=== PATIENT | male | born 1980 | race Caucasian/White ===

== ENCOUNTER 2017-05-19 21:01 | Emergency (ER) | payer MEDICAID, SELFPAY ==
[2017-05-19] MEDS ORDERED: Ondansetron HCl/PF 4 MG/2 ML Vial ONE (21:34)
[2017-05-19] MEDS ORDERED: Dexamethasone 4 MG TAB ONE (21:38)
[2017-05-19 21:43] LABS: Hematocrit 41.5 % (42.0-52.0); Mean Platelet Volume 7.1 fL (7.4-10.4); Red Blood Cell (RBC) Count 4.34 mill/uL (4.70-6.10); White Blood Cell (WBC) Count 13.4 thou/uL (4.8-10.8)
[2017-05-19] MEDS ORDERED: Ketorolac Tromethamine 30 MG/ML VIAL ONE (21:58)
[2017-05-19 22:04] LABS: Band 5 % (5-11); Neutrophil 46 % (42-75); Reactive Lymphocytes 15 % (0-10)
== END 2017-05-19 22:22 | disposition home or self-care (01) ==
LOC: ERS 21:01
DX: B27.90 Infectious mononucleosis, unspecified without complication (principal); F32.9 Major depressive disorder, single episode, unspecified; F41.9 Anxiety disorder, unspecified; F17.210 Nicotine dependence, cigarettes, uncomplicated; F17.220 Nicotine dependence, chewing tobacco, uncomplicated
CPT/HCPCS: 85025; 86308; 87081; 87430; 96374; 96375; J1885; J2405; J8540

== ENCOUNTER 2017-05-21 18:43 | Emergency (ER) | payer SELFPAY ==
[~2017-05-21 18:43] MED LIST: ISOVUE-370 76%-LOCM 1 ML ONE
[2017-05-21] MEDS ORDERED: Dexamethasone 4 mg/ml Vial ONE (19:44)
[2017-05-21] MEDS ORDERED: Ondansetron HCl/PF 4 MG/2 ML Vial ONE (19:44)
[2017-05-21 20:13] LABS: Mean Platelet Volume 7.1 fL (7.4-10.4); Red Blood Cell (RBC) Count 4.34 mill/uL (4.70-6.10); White Blood Cell (WBC) Count 12.7 thou/uL (4.8-10.8)
[2017-05-21 20:30] LABS: Anion Gap 18 mmol/L (10-20); BUN (Urea Nitrogen) 23 mg/dL (8.9-20.6); Calc. Creatinine Clearance 0 mL/min (70-130); Calcium 8.9 mg/dL (7.8-10.44); Carbon Dioxide 25 mmol/L (22-29); Chloride 98 mmol/L (98-107); Estimated GFR-MDRD Greater than 90
[2017-05-21 20:39] LABS: Band 3 % (5-11); Neutrophil 58 % (42-75); Reactive Lymphocytes 3 % (0-10)
[2017-05-21] MEDS ORDERED: Ketorolac Tromethamine 30 MG/ML VIAL ONE (21:48)
--- NOTE | 2017-05-21 22:12 | CT ---
CT ABDOMEN AND PELVIS WITH IV CONTRAST: History: Abdominal pain, recent fall, mononucleosis. FINDINGS: The lungs bases are clear. Small cysts are present throughout the liver. Retroaortic left renal vein is noted. The spleen has a normal appearance and is upper limits of normal in size at 12 cm. No free fluid or free air are visible. Lack of oral contrast limits evaluation of the bowel. There is no evidence of obstruction. Urinary bladder is incompletely distended. IMPRESSION: 1. No significant abnormalities are demonstrated. POS: [facility]
== END 2017-05-21 22:19 | disposition home or self-care (01) ==
LOC: ERS 18:43
DX: B27.90 Infectious mononucleosis, unspecified without complication (principal); F32.9 Major depressive disorder, single episode, unspecified; F41.9 Anxiety disorder, unspecified; F17.210 Nicotine dependence, cigarettes, uncomplicated; F17.220 Nicotine dependence, chewing tobacco, uncomplicated
CPT/HCPCS: 36415; 74177; 80048; 85025; 96361; 96374; 96375; J1100; J1885; J2405

== ENCOUNTER 2018-11-27 18:14 | Emergency (ER) | payer SELFPAY ==
[2018-11-27 19:21] LABS: #Basophils 0.1 thou/uL (0.0-0.2); #Eosinphils 0.1 thou/uL (0.0-0.7); #Lymphocytes 2.4 thou/uL (1.20-3.40); #Monocytes 0.5 thou/uL (0.11-0.59); #Neutrophils 3.4 thou/uL (1.40-6.50); %Basophils 1.3 % (0.0-1.0); %Eosinophils 1.5 % (0.0-10.0); %Lymphocytes 37.1 % (21.0-51.0); %Monocytes 7.4 % (0.0-10.0); %Neutrophils 52.7 % (42.0-75.0); Mean Corpuscular Hemoglobin 31.7 pg (27.0-31.0); Mean Corpuscular Volume 93.2 fL (78.0-98.0); Mean Platelet Volume 5.7 fL (7.4-10.4); Platelet Count 499 thou/uL (130-400); RBC Distribution Width 11.8 % (11.5-14.5); White Blood Cell (WBC) Count 6.4 thou/uL (4.8-10.8)
[2018-11-27 19:49] LABS: ALT (SGPT) 11 U/L (8-55); AST (SGOT) 16 U/L (5-34); Albumin 4.8 g/dL (3.5-5.0); Alkaline Phosphatase 46 U/L (40-150); Anion Gap 12 mmol/L (10-20); BUN (Urea Nitrogen) 11 mg/dL (8.9-20.6); Calc. Creatinine Clearance 0 mL/min (70-130); Calcium 9.8 mg/dL (7.8-10.44); Carbon Dioxide 29 mmol/L (22-29); Chloride 102 mmol/L (98-107); Estimated GFR-MDRD 88; Globulin 2.2 g/dL (2.4-3.5); Glucose 78 mg/dL (70-105); Potassium 3.2 mmol/L (3.5-5.1); Sodium 140 mmol/L (136-145)
[2018-11-27 20:00] LABS: Lipase 8 U/L (8-78)
[2018-11-27] MEDS ORDERED: Morphine 4 MG/ML VIAL ONE (22:27)
[2018-11-27] MEDS ORDERED: Ondansetron PF 4 MG/2 ML Vial ONE (22:28)
--- NOTE | 2018-11-27 23:13 | CT ---
Contrast-enhanced CT images abdomen pelvis. [place] history: Abdominal pain. Contrast-enhanced CT images of the abdomen pelvis obtained after administration of IV contrast. Unfor tunately oral contrast was not given. This does decrease sensitivity for detection of pathology. The lung bases are unremarkable. Numerous hepatic cyst seen. The spleen is unremarkable. The gallbladder and pancreas are unremarkable. Adrenal glands and kidneys unremarkable. Numerous sigmoid colonic diverticuli are present. No evidence of free intraperitoneal air or abscess seen. No dilated loops of small bowel seen. Some moderately thickened and inflamed loop of small bowel seen. This may represent areas of enteriti s in the left mid abdomen. IMPRESSION: Thickened and inflamed loops of small bowel concerning for enteritis.
[2018-11-27] MEDS ORDERED: traMADol HCl 50 MG TAB ONE (23:43)
[2018-11-28 00:05] LABS: Clarity Clear (Clear)
[2018-11-28 00:06] LABS: Bilirubin Small (Negative); Blood, Urine Negative (Negative); Glucose, Urine (Dipstick) Negative (Negative); Leukocyte Negative (Negative); Nitrite Negative (Negative); Protein, Urine (Dipstick) 30 mg/dL (Neg-Trace)
[2018-11-28 00:09] LABS: Bacteria/HPF None Seen HPF (None Seen); Hyaline Casts/LPF 0-3 HYALINE CAST LPF (0-3 Hyaline); RBC/HPF 0-3 HPF (0-3); Squamous Epithelial None Seen HPF (0-3); WBC/HPF 0-3 HPF (0-3)
== END 2018-11-28 | disposition home or self-care (01) ==
LOC: ERS 18:14
DX: R10.13 Epigastric pain (principal); K08.89 Other specified disorders of teeth and supporting structures; F17.220 Nicotine dependence, chewing tobacco, uncomplicated; F41.9 Anxiety disorder, unspecified; F32.9 Major depressive disorder, single episode, unspecified
CPT/HCPCS: 36415; 74177; 80053; 81003; 81015; 83690; 84484; 85025; 96361; 96374; 96375; J2270; J2405; Q9966

== ENCOUNTER 2018-12-09 10:01 | Emergency (ER) | payer SELFPAY ==
[2018-12-09] MEDS ORDERED: Morphine 4 MG/ML VIAL ONE (11:19)
[2018-12-09] MEDS ORDERED: Ondansetron PF 4 MG/2 ML Vial ONE (11:19)
[2018-12-09 11:35] LABS: Bilirubin Negative (Negative); Blood, Urine Negative (Negative); Clarity CLEAR (Clear); Glucose, Urine (Dipstick) Negative (Negative); Leukocyte Negative (Negative); Nitrite Negative (Negative); Protein, Urine (Dipstick) Trace mg/dL (Neg-Trace); Specific Gravity, Urine 1.016 (1.002-1.036); Urobilinogen 0.2 mg/dL (0.2-1.0); pH, Urine 8.5 (5.0-9.0)
--- NOTE | 2018-12-09 11:39 | ULT ---
Testicular ultrasound INDICATION: Right inguinal and right testicular pain TECHNIQUE: Grayscale, color Doppler spectral Doppler images were obtained of the scrotum. COMPARISON: None. FINDINGS: Right testicle: The right testicle measured 4.1 x 3.1 x 2.3cm. There is normal vascular flow to the r ight testicle IV contrast there is a small right-sided hydrocele. There is a small right epididymal head cyst measuring 4 mm. Left testicle: The left testicle measured 3.3 x 3.3 x 2.4cm. There is normal vascular flow to left te sticle. End There is a mild-sized left-sided varicocele.There is an 8 mm left epididymal head cyst. Additional findings: There is mild fat present within the right inguinal canal. No large right inguin al canal hernia is demonstrated. Impression: 1. No intratesticular mass or torsion demonstrated. 2. Small right hydrocele 3. Mild left-sided varicocele. 4. Bilateral epididymal head cysts. 5. No evidence of hernia involving the right inguinal canal.
[2018-12-09] MEDS ORDERED: Ketorolac Tromethamine 30 MG/ML VIAL ONE (11:53)
[2018-12-09 11:56] LABS: #Basophils 0.1 thou/uL (0.0-0.2); #Eosinphils 0.1 thou/uL (0.0-0.7); #Lymphocytes 1.9 thou/uL (1.20-3.40); #Monocytes 0.4 thou/uL (0.11-0.59); #Neutrophils 2.9 thou/uL (1.40-6.50); %Basophils 1.3 % (0.0-1.0); %Eosinophils 2.3 % (0.0-10.0); %Lymphocytes 35.1 % (21.0-51.0); %Monocytes 7.5 % (0.0-10.0); %Neutrophils 53.7 % (42.0-75.0); Hemoglobin 13.2 g/dL (14.0-18.0); Mean Corpuscular HGB CONC 33.8 g/dL (32.0-36.0); Mean Corpuscular Hemoglobin 32.2 pg (27.0-31.0); Mean Corpuscular Volume 95.2 fL (78.0-98.0); Mean Platelet Volume 6.8 fL (7.4-10.4); Platelet Count 344 thou/uL (130-400); RBC Distribution Width 12.2 % (11.5-14.5); White Blood Cell (WBC) Count 5.3 thou/uL (4.8-10.8)
== END 2018-12-09 12:15 | disposition left against medical advice (07) ==
LOC: ERS 10:01
DX: N43.3 Hydrocele, unspecified (principal); N50.3 Cyst of epididymis; F41.9 Anxiety disorder, unspecified; F32.9 Major depressive disorder, single episode, unspecified; F17.290 Nicotine dependence, other tobacco product, uncomplicated
CPT/HCPCS: 76870; 81003; 83605; 85025; 93976; J1885; J2270; J2405

== ENCOUNTER 2018-12-09 19:46 | Emergency (ER) | payer SELFPAY ==
[2018-12-09 20:16] LABS: #Basophils 0.1 thou/uL (0.0-0.2); #Eosinphils 0.2 thou/uL (0.0-0.7); #Lymphocytes 2.7 thou/uL (1.20-3.40); #Monocytes 0.5 thou/uL (0.11-0.59); #Neutrophils 3.9 thou/uL (1.40-6.50); %Eosinophils 2.5 % (0.0-10.0); %Lymphocytes 36.1 % (21.0-51.0); %Neutrophils 53.4 % (42.0-75.0); Mean Corpuscular HGB CONC 33.2 g/dL (32.0-36.0); Mean Corpuscular Hemoglobin 31.8 pg (27.0-31.0); Mean Corpuscular Volume 95.6 fL (78.0-98.0); Platelet Count 378 thou/uL (130-400); RBC Distribution Width 12.1 % (11.5-14.5); White Blood Cell (WBC) Count 7.4 thou/uL (4.8-10.8)
[2018-12-09 20:38] LABS: ALT (SGPT) 16 U/L (8-55); AST (SGOT) 17 U/L (5-34); Albumin 4.5 g/dL (3.5-5.0); Alkaline Phosphatase 41 U/L (40-150); Anion Gap 12 mmol/L (10-20); BUN (Urea Nitrogen) 8 mg/dL (8.9-20.6); Bilirubin, Total 1.2 mg/dL (0.2-1.2); Calc. Creatinine Clearance 0 mL/min (70-130); Calcium 9.1 mg/dL (7.8-10.44); Carbon Dioxide 27 mmol/L (22-29); Chloride 106 mmol/L (98-107); Estimated GFR-MDRD Greater than 90; Glucose 124 mg/dL (70-105); Lipase 25 U/L (8-78); Potassium 3.9 mmol/L (3.5-5.1); Protein, Total 6.5 g/dL (6.0-8.3); Sodium 141 mmol/L (136-145)
== END 2018-12-09 21:33 | disposition left against medical advice (07) ==
LOC: ERS 19:46
DX: Z53.21 Procedure and treatment not carried out due to patient leaving prior to being seen by health care provider (principal)
CPT/HCPCS: 36415; 80053; 83690

== ENCOUNTER 2018-12-23 15:09 | Emergency (ER) | payer SELFPAY ==
[2018-12-23] MEDS ORDERED: Acetaminophen 500 MG TAB ONE (16:16)
== END 2018-12-23 16:29 | disposition home or self-care (01) ==
LOC: ERS 15:09
DX: K02.9 Dental caries, unspecified (principal); F41.9 Anxiety disorder, unspecified; F32.9 Major depressive disorder, single episode, unspecified; F17.220 Nicotine dependence, chewing tobacco, uncomplicated